=== PATIENT | male | born 1990 | race Caucasian/White ===

== ENCOUNTER 2021-10-14 14:13 | Inpatient (IN) | payer MEDICAID, SELFPAY ==
[2021-10-14] VITALS (28 sets, daily range): BP systolic 95–141; BP diastolic 58–109; PULSE 74–109; RESP 14–27; TEMP 36.9; O2SAT 90–99; BMI 34.0
--- NOTE | 2021-10-14 14:32 | ED_ITS ---
Documented by User: JOS French 10/15/21 07:59 HPI - Altered Mental Status General: Chief Complaint: Psychiatric Symptoms Stated Complaint: ams Time Seen by Provider: 10/14/21 14:16 Source: patient and police Mode of arrival: ambulatory (police custody) Limitations: altered mental status History of Present Illness: Patient is a 31-year-old male who presents to ED today in police custody (along with an affidavit) for mental health evaluation for altered mental status. According to police patient was found digging underneath a car for rocks and reportedly thought he was on a river [place]. 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 He states he took a direct train route from [facility] where he lives to here for work and has been staying at a motel. Police verifies that none of this is accurate. Patient can tell me his name and date of but cannot tell me any further orientation questions. When going over patient's medical history he tells me that he has a surgical history in which they removed his heart and now he functions without one. History is limited on patient as speech seems illogical and disorganized. court collections officer states patient does have a history of methamphetamine abuse. MD complaint: altered mental status Review of Systems General: Reports: ROS unobtainable due to mental status (able to answer questions but I question the accuracy based on psychosis) Physical Exam Const: COMMON NORMALS: alert GENERAL APPEARANCE: cooperative and disheveled NUTRITIONAL APPEARANCE: overweight ORIENTATION/CONSCIOUSNESS: Yes awake and Yes oriented to person OTHER: appears much older than stated age; wearing jeans and a sweater and is covered in dirt HENMT: COMMON NORMALS: normocephalic and atraumatic HEAD & SCALP: normocephalic and atraumatic Eye: GENERAL EYE: appearance normal, both eyes and all related structures Resp: COMMON NORMALS: normal respiratory effort and clear to auscultation bilaterally AUSCULTATION: clear to auscultation bilaterally Cardio: COMMON NORMALS: regular rhythm RATE: tachycardic RHYTHM: regular rhythm Extremity: COMMON NORMALS: normal to inspection GENERAL: Yes normal exam except as noted Neuro: OMNE COMA SCALE: document GCS findings Mone coma scale eye opening: Spontaneous Mone coma scale verbal response: Orientated Mone coma scale motor response: Obey commands [place] coma scale total score: 15 COMMON NORMALS: moves all extremities, no focal motor deficits, no sensory deficits noted and gait normal SENSORIUM/ORIENTATION: Yes alert and Yes oriented to person Psych: COMMON NORMALS: cooperative, speech normal, activity/motor behavior normal, denies hallucinations, denies homicidal ideation and denies suicidal ideation APPEARANCE: Yes disheveled SPEECH: Yes normal speech MOOD & AFFECT: Yes euthymic mood THOUGHT PROCESS: incoherent, disorganized and Illogical thought process present THOUGHT CONTENT: Yes Normal thought content present MEMORY/COGNITION: Yes memory grossly impaired INSIGHT: Limited insight present (Psych) JUDGEMENT: Limited judgement present (Psych) Course Consultations: Consultation #1: Dr. Valentine-accepts medical admit Consultation #2: Dr. Calderon-will consult on patient while in hospital Vital Signs: Vital signs: Vital Signs Temperature 98.4 F 10/14/21 19:45 Pulse Rate 81 10/15/21 06:00 Respiratory Rate 20 H 10/15/21 05:15 Blood Pressure 120/62 10/15/21 05:15 Pulse Oximetry 96 10/15/21 05:15 MDM - Altered Mental Status Medical Decision Making Patient will be admitted medically secondary to rhabdomyolysis and acute kidney injury. Patient has a methamphetamine induced psychosis. He is on a 96-hour hold. I have spoken to psychiatry and they will consult on patient while he is in the hospital. Dr. Davenport also saw/evaluated patient and agrees with current plan. Patient seen and examined reviewed note. Chart reviewed and patient discussed with midlevel. Agree with assessment and plan. Orders written for admission to ICU under 96-hour hold for medical management and psychiatry consult. Lab Data : 10/15/21 04:46 10/15/21 04:46 Radiology Impressions Chest X-Ray 10/14/21 14:33 IMPRESSION: No acute chest abnormality. Head CT 10/14/21 14:33 IMPRESSION: Negative head CT. Laboratory Results WBC 15.9 10^3/uL (4.0-10.0) H 10/14/21 14:57 RBC 5.03 10^6/uL (4.1-5.3) 10/14/21 14:57 Hgb 14.1 g/dL (11.7-16.6) 10/14/21 14:57 Hct 41.2 % (42.0-52.0) L 10/14/21 14:57 MCV 81.9 fl (80-94) 10/14/21 14:57 MCH 28.0 pg (28.0-34.0) 10/14/21 14:57 MCHC 34.2 g/dL (30.0-36.0) 10/14/21 14:57 RDW 13.6 % (12.1-15.1) 10/14/21 14:57 Plt Count 255 10^3/cmm (130-400) 10/14/21 14:57 MPV 10.7 fL (7.4-10.4) H 10/14/21 14:57 Neut % (Auto) 85.8 % 10/14/21 14:57 Lymph % (Auto) 7.2 % 10/14/21 14:57 Orange % (Auto) 6.2 % 10/14/21 14:57 Eos % (Auto) 0.0 % 10/14/21 14:57 Baso % (Auto) 0.4 % 10/14/21 14:57 Neut # (Auto) 13.60 10^3/uL (1.8-7.7) H 10/14/21 14:57 Lymph # (Auto) 1.2 10^3/uL (0.8-4.8) 10/14/21 14:57 Orange # (Auto) 1.0 10^3/uL (0.2-0.9) H 10/14/21 14:57 Eos # (Auto) 0.0 10^3/uL (0.0-0.8) 10/14/21 14:57 Baso # (Auto) 0.1 10^3/uL (0.0-0.1) 10/14/21 14:57 Nucleated RBC % (auto) 0 % 10/14/21 14:57 Nucleated RBCs # 0.0 /100WBC 10/14/21 14:57 Sodium 139 mmol/L (136-145) 10/14/21 14:57 Potassium 3.5 mmol/L (3.5-5.1) 10/14/21 14:57 Chloride 96 mmol/L (98-107) L 10/14/21 14:57 Carbon Dioxide 16 mmol/L (22-29) L 10/14/21 14:57 Anion Gap 30.5 (5-19) H 10/14/21 14:57 BUN 36 mg/dL (6-20) H 10/14/21 14:57 Creatinine 2.5 mg/dL (0.7-1.2) H 10/14/21 14:57 GFR Calculation 30.3 mL/min (90-130) L 10/14/21 14:57 Glucose 82 mg/dL (65-115) 10/14/21 14:57 Calculated Osmolality 295 mOsm/kg (285-295) 10/14/21 14:57 Uric Acid 13.4 mg/dL (3.4-7.0) H 10/14/21 14:57 Calcium 9.4 mg/dL (8.5-10.5) 10/14/21 14:57 Total Bilirubin 2.6 mg/dL (0.15-1.2) H 10/14/21 14:57 AST 128 U/L (0-40) H 10/14/21 14:57 ALT 75 U/L (0-41) H 10/14/21 14:57 Alkaline Phosphatase 134 IU/L (40-130) H 10/14/21 14:57 Creatine Kinase 5191 U/L (39-308) H* 10/14/21 14:57 CK-MB (CK-2) 34.6 ng/mL (0-10.4) H 10/14/21 14:57 CK-MB (CK-2) Rel Index 0.6 % (0.0-5.3) 10/14/21 14:57 Total Protein 8.3 g/dL (6.6-8.7) 10/14/21 14:57 Albumin 4.9 g/dL (3.5-5.2) 10/14/21 14:57 Globulin 3.4 g/dL (1.3-4.6) 10/14/21 14:57 Salicylates < 0.3 mg/dL (3-10) L 10/14/21 14:57 Urine Opiates Screen Negative ng/mL (Negative) 10/14/21 15:10 Acetaminophen < 5.0 ug/mL (10-30) L 10/14/21 14:57 Ur Barbiturates Screen Negative ng/mL (Negative) 10/14/21 15:10 Ur Phencyclidine Scrn Negative ng/mL (Negative) 10/14/21 15:10 Ur Amphetamines Screen Positive ng/mL (Negative) H 10/14/21 15:10 U Benzodiazepines Scrn Negative ng/mL (Negative) 10/14/21 15:10 Urine Cocaine Screen Negative ng/mL (Negative) 10/14/21 15:10 U Marijuana (THC) Screen Negative ng/mL (Negative) 10/14/21 15:10 Ethyl Alcohol < 10 mg/dL (0-10) 10/14/21 14:57 Discharge Plan Discharge Patient Disposition: Admitted As Inpatient Admit Provider: Dennys Green Clinical Impression: Acute psychosis, Rhabdomyolysis, Acute kidney injury, Methamphetamine abuse Condition: Stable Coding Level of Care Code ED Computing Tutor for Chg Fwd Exam Comprehensive Documented by User: Karan Davenport DO 10/14/21 17:12 HPI - Altered Mental Status General: Chief Complaint: Psychiatric Symptoms Stated Complaint: ams Time Seen by Provider: 10/14/21 14:16 Physical Exam Neuro: MONE COMA SCALE: document GCS findings Mone coma scale total score: 15 Course Vital Signs: Vital signs: Vital Signs Temperature 98.4 F 10/14/21 19:45 Pulse Rate 81 10/15/21 06:00 Respiratory Rate 20 H 10/15/21 05:15 Blood Pressure 120/62 10/15/21 05:15 Pulse Oximetry 96 10/15/21 05:15 MDM - Altered Mental Status Medical Decision Making Patient will be admitted medically secondary to rhabdomyolysis and acute kidney injury. Patient has a methamphetamine induced psychosis. He is on a 96-hour hold. I have psychiatry paged so they can consult on patient while he is in the hospital. Dr. Davenport also saw/evaluated patient and agrees with current plan. Patient seen and examined reviewed note. Chart reviewed and patient discussed with midlevel. Agree with assessment and plan. Orders written for admission to ICU under 96-hour hold for medical management and psychiatry consult. Medical Records I reviewed the patient's medical records. Lab Data I reviewed the patient's lab results. : 10/15/21 04:46 10/15/21 04:46 Radiology Impressions Chest X-Ray 10/14/21 14:33 IMPRESSION: No acute chest abnormality. Head CT 10/14/21 14:33 IMPRESSION: Negative head CT. Laboratory Results WBC 15.9 10^3/uL (4.0-10.0) H 10/14/21 14:57 RBC 5.03 10^6/uL (4.1-5.3) 10/14/21 14:57 Hgb 14.1 g/dL (11.7-16.6) 10/14/21 14:57 Hct 41.2 % (42.0-52.0) L 10/14/21 14:57 MCV 81.9 fl (80-94) 10/14/21 14:57 MCH 28.0 pg (28.0-34.0) 10/14/21 14:57 MCHC 34.2 g/dL (30.0-36.0) 10/14/21 14:57 RDW 13.6 % (12.1-15.1) 10/14/21 14:57 Plt Count 255 10^3/cmm (130-400) 10/14/21 14:57 MPV 10.7 fL (7.4-10.4) H 10/14/21 14:57 Neut % (Auto) 85.8 % 10/14/21 14:57 Lymph % (Auto) 7.2 % 10/14/21 14:57 Orange % (Auto) 6.2 % 10/14/21 14:57 Eos % (Auto) 0.0 % 10/14/21 14:57 Baso % (Auto) 0.4 % 10/14/21 14:57 Neut # (Auto) 13.60 10^3/uL (1.8-7.7) H 10/14/21 14:57 Lymph # (Auto) 1.2 10^3/uL (0.8-4.8) 10/14/21 14:57 Orange # (Auto) 1.0 10^3/uL (0.2-0.9) H 10/14/21 14:57 Eos # (Auto) 0.0 10^3/uL (0.0-0.8) 10/14/21 14:57 Baso # (Auto) 0.1 10^3/uL (0.0-0.1) 10/14/21 14:57 Nucleated RBC % (auto) 0 % 10/14/21 14:57 Nucleated RBCs # 0.0 /100WBC 10/14/21 14:57 Sodium 139 mmol/L (136-145) 10/14/21 14:57 Potassium 3.5 mmol/L (3.5-5.1) 10/14/21 14:57 Chloride 96 mmol/L (98-107) L 10/14/21 14:57 Carbon Dioxide 16 mmol/L (22-29) L 10/14/21 14:57 Anion Gap 30.5 (5-19) H 10/14/21 14:57 BUN 36 mg/dL (6-20) H 10/14/21 14:57 Creatinine 2.5 mg/dL (0.7-1.2) H 10/14/21 14:57 GFR Calculation 30.3 mL/min (90-130) L 10/14/21 14:57 Glucose 82 mg/dL (65-115) 10/14/21 14:57 Calculated Osmolality 295 mOsm/kg (285-295) 10/14/21 14:57 Uric Acid 13.4 mg/dL (3.4-7.0) H 10/14/21 14:57 Calcium 9.4 mg/dL (8.5-10.5) 10/14/21 14:57 Total Bilirubin 2.6 mg/dL (0.15-1.2) H 10/14/21 14:57 AST 128 U/L (0-40) H 10/14/21 14:57 ALT 75 U/L (0-41) H 10/14/21 14:57 Alkaline Phosphatase 134 IU/L (40-130) H 10/14/21 14:57 Creatine Kinase 5191 U/L (39-308) H* 10/14/21 14:57 CK-MB (CK-2) 34.6 ng/mL (0-10.4) H 10/14/21 14:57 CK-MB (CK-2) Rel Index 0.6 % (0.0-5.3) 10/14/21 14:57 Total Protein 8.3 g/dL (6.6-8.7) 10/14/21 14:57 Albumin 4.9 g/dL (3.5-5.2) 10/14/21 14:57 Globulin 3.4 g/dL (1.3-4.6) 10/14/21 14:57 Salicylates < 0.3 mg/dL (3-10) L 10/14/21 14:57 Urine Opiates Screen Negative ng/mL (Negative) 10/14/21 15:10 Acetaminophen < 5.0 ug/mL (10-30) L 10/14/21 14:57 Ur Barbiturates Screen Negative ng/mL (Negative) 10/14/21 15:10 Ur Phencyclidine Scrn Negative ng/mL (Negative) 10/14/21 15:10 Ur Amphetamines Screen Positive ng/mL (Negative) H 10/14/21 15:10 U Benzodiazepines Scrn Negative ng/mL (Negative) 10/14/21 15:10 Urine Cocaine Screen Negative ng/mL (Negative) 10/14/21 15:10 U Marijuana (THC) Screen Negative ng/mL (Negative) 10/14/21 15:10 Ethyl Alcohol < 10 mg/dL (0-10) 10/14/21 14:57 Discharge Plan Discharge Patient Disposition: Admitted As Inpatient Admit Provider: Dennys Green Clinical Impression: Acute psychosis, Rhabdomyolysis, Acute kidney injury, Methamphetamine abuse Condition: Stable Coding Level of Care Code ED Computing Tutor for Carola Fwd Exam Comprehensive
--- NOTE | 2021-10-14 14:33 | XR_ITS ---
WS: [id number] XR chest 1V portable [id number] REASON FOR EXAM: AMS FINDINGS: The heart and mediastinum are within normal limits. Calcified granulomatous disease in both hemithoraces. No acute pulmonary parenchymal or pleural abnormality. Bony thorax is intact without significant focal abnormality. XR/XR chest 1V portable [id number] IMPRESSION: No acute chest abnormality.
--- NOTE | 2021-10-14 14:33 | CT_ITS ---
WS: [id number] CT HEAD NONCONTRAST HISTORY: AMS TECHNIQUE: Contiguous axial imaging performed through the brain in 2.5 mm imaging. Bone and soft tiss ue windows. Sagittal and coronal reformats reviewed. All CT scans at [facility] use at least one of these dose optimization techniques: automated exposure control; mA and/or kV adjustment per pa tient size (includes targeted exams where dose is matched to clinical indication); or iterative recon struction. DLP: 926.8 mGy.cm COMPARISON: None available. No acute intracranial hemorrhage, midline shift or mass effect. No atrophy or prior infarcts or herniation. Ventricles: Normal size with no hydrocephalus. Paranasal sinuses: As visualized are clear. Mastoid air cells: Well pneumatized. Calvarium and scalp: Skull is intact with no soft tissue edema or swelling. CT/CT head wo con* [id number] IMPRESSION: Negative head CT.
[2021-10-14 15:05] LABS: Basophils # 0.1 10^3/uL (0.0-0.1); Basophils % 0.4 %; Hematocrit 41.2 % (42.0-52.0); Hemoglobin 14.1 g/dL (11.7-16.6); Lymphocytes # 1.2 10^3/uL (0.8-4.8); Lymphocytes % 7.2 %; Mean Corpuscular HGB Conc 34.2 g/dL (30.0-36.0); Mean Corpuscular Volume 81.9 fl (80-94); Mean Platelet Volume 10.7 fL (7.4-10.4); Monocytes % 6.2 %; Neutrophils % 85.8 %; Nucleated Red Blood Cells % 0 %; Platelet Count 255 10^3/cmm (130-400); Red Blood Count 5.03 10^6/uL (4.1-5.3); Red Cell Distribution Width 13.6 % (12.1-15.1); White Blood Count 15.9 10^3/uL (4.0-10.0)
[2021-10-14 15:25] LABS: Alanine Aminotransferase 75 U/L (0-41); Albumin Level 4.9 g/dL (3.5-5.2); Alkaline Phosphatase 134 IU/L (40-130); Anion Gap 30.5 (5-19); Aspartate Amino Transferase 128 U/L (0-40); Blood Urea Nitrogen 36 mg/dL (6-20); Calcium 9.4 mg/dL (8.5-10.5); Carbon Dioxide 16 mmol/L (22-29); Chloride 96 mmol/L (98-107); Globulin 3.4 g/dL (1.3-4.6); Glomerular Filtration Rate 30.3 mL/min (90-130); Glucose 82 mg/dL (65-115); Osmolality Calculated 295 mOsm/kg (285-295); Potassium 3.5 mmol/L (3.5-5.1); Sodium 139 mmol/L (136-145); Total Bilirubin 2.6 mg/dL (0.15-1.2); Total Protein 8.3 g/dL (6.6-8.7)
[2021-10-14 15:28] LABS: Amphetamines Screen Urine Positive (Negative); Barbiturates Screen Urine Negative (Negative); Benzodiazepines Screen Urine Negative (Negative); Cocaine Screen Urine Negative (Negative); Opiate Screen Urine Negative (Negative); PCP Screen Urine Negative (Negative); THC Screen Urine Negative (Negative)
[2021-10-14 15:30] LABS: Acetaminophen < 5.0 ug/mL (10-30); Alcohol Level < 10 mg/dL (0-10); Salicylate < 0.3 mg/dL (3-10)
[2021-10-14 15:42] LABS: Creatine Phosphokinase 5191 U/L (39-308)
[2021-10-14 15:56] LABS: CKMB 34.6 ng/mL (0-10.4)
[2021-10-14] MEDS: sodium chloride 0.9% 1,000 ML 999 ML IV ×4 (16:04→22:21)
[2021-10-14 16:06] LABS: CKMB Relative Index 0.6 % (0.0-5.3)
--- NOTE | 2021-10-14 18:08 | PM.HP ---
Providers/Chief Complaint Chief Complaint: ams History of Present Illness Stevan Patel is a 31 year old male who was brought in by the engineering test mechanic for mental health checkup. As per the ER staff this patient was found on a boat acting bizarre and psychotic, he was endorsing setting someone up on fire however was not able to give any details that is why he was put on 96-hour hold, when I interviewed him patient was experiencing flight of ideas, he was delusional and psychotic, restless however verbally redirectable. He was afebrile, CBC BMP consistent with dehydration, rhabdomyolysis, hemodynamically stable. He did receive aggressive fluid resuscitation in the ER, he will be admitted to ICU for management of psychosis, rhabdomyolysis. Dressing positive for methamphetamine. Patient told ER staff that he traveled towards [place] in a train which is underground. Review of Systems General: Reports: ROS unobtainable due to mental status (Psychosis, delusional) Medications/Allergies Home Medications Medication Instructions Recorded Confirmed Last Taken Type ibuprofen 200 mg tablet (Advil) 200 mg PO Q6H PRN 10/14/21 10/14/21 10/13/21 History Allergies Allergy/AdvReac Type Severity Reaction Status Date / Time No Known Allergies Allergy Unverified 10/14/21 15:58 PFSH Acute PFSH: Medical History (Updated 10/15/21 @ 11:44 by Mei Valentine MD) No pertinent past medical history Surgical History (Updated 10/15/21 @ 11:44 by Mei Valentine MD) No pertinent past surgical history Family History (Updated 10/15/21 @ 11:44 by Mei Valentine MD) Denies family history of Diabetes Social History (Updated 10/15/21 @ 11:45 by Mei Valentine MD) Smoking and tobacco status: current every day smoker Alcohol intake: unknown Substance/Drug Use: current Substance/Drug use type: Marijuana and Amphetamines Vitals/I&O/Wt Last Vital Signs Temp 98.5 F 10/14/21 14:19 Pulse 93 10/14/21 16:19 Resp 16 10/14/21 16:19 BP 95/59 10/14/21 16:19 Pulse Ox 93 10/14/21 16:19 Weight last 48 hrs Weight 120.202 kg Physical Exam Narrative: Patient is delusional, psychotic No signs of stroke Awake and alert Afebrile Signs of dehydration Nonfocal neuro exam Verbally redirectable S1, S2 Abdomen soft Appropriate grooming Data : 10/15/21 04:46 10/15/21 04:46 A&P Assessment and plan (1) Acute psychosis: Status: Acute (2) Rhabdomyolysis: Status: Acute Qualifiers: Rhabdomyolysis type: non-traumatic Qualified Code(s): M62.82 - Rhabdomyolysis (3) Acute kidney injury: Status: Acute (4) Methamphetamine abuse: Status: Acute Plan Delirium, psychosis, Substance abuse Dehydration Rhabdomyolysis Admit to ICU 96-hour hold Aggressive fluid hydration He was also given bicarb 1 amp Trend CPK Normal saline 200 mill per hour Monitor for urine output Attestations Medical Necessity Statement*: Admit to ICU anticipating more than 2 midnights Time Spent in Patient Care: 30 Coding Level of Care Code Acute Sales And Marketing Analyst for Carola Cortes Diagnoses Acute psychosis F23 Rhabdomyolysis M62.82 Rhabdomyolysis type: non-traumatic Acute kidney injury N17.9 Methamphetamine abuse F15.10
[2021-10-14 18:51] LABS: Uric Acid 13.4 mg/dL (3.4-7.0)
--- NOTE | 2021-10-14 21:24 | PC.NURSE ---
Multiple orders for fluid boluses from ED (4L in total). Physician contacted to clarify these orders, MD stated to give fluids as ordered. Will continue to monitor.
--- NOTE | 2021-10-14 21:25 | PC.NURSE ---
Patient arrived via gurney from ED with ED nurse. Upon admission assessment, this nurse noted lacerations on the left hand of the patient. These lacerations were cleaned with soap and water and left open to air. Will continue to monitor.
[2021-10-14] MEDS: sodium bicarbonate 650 mg Tablet PO (21:32)
[2021-10-14] MEDS: sodium chloride 0.9% 1,000 ML 200 ML IV (23:26)
[2021-10-15] VITALS (50 sets, daily range): BP systolic 107–145; BP diastolic 55–72; PULSE 63–94; RESP 13–30; TEMP 36.6–37.1; O2SAT 89–100
[2021-10-15] MEDS: sodium chloride 0.9% 1,000 ML 200 ML IV ×4 (04:56→20:28)
[2021-10-15 05:27] LABS: Basophils # 0.1 10^3/uL (0.0-0.1); Basophils % 0.5 %; Eosinophils # 0.1 10^3/uL (0.0-0.8); Eosinophils % 0.9 %; Hematocrit 36.3 % (42.0-52.0); Hemoglobin 11.9 g/dL (11.7-16.6); Lymphocytes % 18.7 %; Mean Corpuscular HGB Conc 32.8 g/dL (30.0-36.0); Mean Corpuscular Hemoglobin 27.4 pg (28.0-34.0); Mean Corpuscular Volume 83.6 fl (80-94); Mean Platelet Volume 10.8 fL (7.4-10.4); Monocytes # 0.9 10^3/uL (0.2-0.9); Monocytes % 8.8 %; Neutrophils # 7.48 10^3/uL (1.8-7.7); Neutrophils % 70.8 %; Nucleated Red Blood Cells % 0 %; Platelet Count 163 10^3/cmm (130-400); Red Blood Count 4.34 10^6/uL (4.1-5.3); Red Cell Distribution Width 13.8 % (12.1-15.1); White Blood Count 10.6 10^3/uL (4.0-10.0)
[2021-10-15 05:46] LABS: Alanine Aminotransferase 64 U/L (0-41); Albumin Level 3.8 g/dL (3.5-5.2); Alkaline Phosphatase 101 IU/L (40-130); Anion Gap 17.2 (5-19); Aspartate Amino Transferase 117 U/L (0-40); Blood Urea Nitrogen 22 mg/dL (6-20); Calcium 7.7 mg/dL (8.5-10.5); Carbon Dioxide 23 mmol/L (22-29); Chloride 103 mmol/L (98-107); Globulin 2.2 g/dL (1.3-4.6); Glomerular Filtration Rate 87.2 mL/min (90-130); Glucose 77 mg/dL (65-115); Magnesium 1.9 mg/dL (1.7-2.3); Osmolality Calculated 292 mOsm/kg (285-295); Phosphorus 2.2 mg/dL (2.5-4.5); Potassium 3.2 mmol/L (3.5-5.1); Sodium 140 mmol/L (136-145); Total Bilirubin 1.8 mg/dL (0.15-1.2)
[2021-10-15 06:10] LABS: Creatine Phosphokinase 5274 U/L (39-308)
--- NOTE | 2021-10-15 06:55 | PC.NURSE ---
Bedside report completed with TOMÁS Cornell.
[2021-10-15] MEDS: folic acid 1 mg Tablet PO (09:19)
[2021-10-15] MEDS: sodium bicarbonate 650 mg Tablet PO (09:19)
[2021-10-15] MEDS: thiamine 100 mg Tablet PO (09:19)
--- NOTE | 2021-10-15 09:30 | PC.CHAP ---
Pastoral Care Encounter/Spiritual Assessment Type of Contact [] Declined whipper visit [] Patient/Family/Request visit [] Outpatient visit [] Follow-up visit [] Physician referral [] Code/Alert [x] Routine visit [] Staff referral [] Actively dying [x] Patient sleeping [] Family support [] [] Out of room [] Palliative care [] [] Receiving care in room [] Pre-surgical visit [] Trauma [] Long length of stay [x] ICU visit [] Other: Relational/Emotional Strength [] Patient feels connected with others/family/visitors/staff [] Distress [] Loneliness/isolation [] Abandonment Spirituality of Patient [] Person of Cathy [] Attends Baptism of their Cathy [] Believes in Prayer [] Reads Bible or Restorationist materials [] There are Spiritual issues to be addressed Biomedical Specialist Interventions [x] Prayer [] Active listening [] Non-anxious presence [] Spiritual/emotional support [] Crisis/trauma care [] Spiritual counseling [] Bereavement support [] Provided bereavement packet [] Provided Bible/devotional materials [] Provided toy/stuffed animal, coloring book to patient or family member [] Provided Communion [] Anointing/[place] [] Salvation [x] Completed spiritual assessment [] Other: Impact on Illness or Injury [] Angry [] Fearful [] Anxious [] Often cries [] Exhaustion [] Unable to work [] Unable to attend gnosticism [] Unable to walk/stand [] Unable to read [] Unable to drive [] Unable to eat/drink [] Unable to sleep [] Unable to be with family [] Patient intubated [] Other: Summary Time spent with patient
[2021-10-15 10:31] LABS: Creatine Phosphokinase 5776 U/L (39-308)
[2021-10-15] MEDS: potassium chloride ER 20 mEq Tablet 40 MEQ PO (11:03)
[2021-10-15] MEDS: lactated ringers 1,000 ML 999 ML IV (11:04)
--- NOTE | 2021-10-15 11:55 | P.PN_ITS ---
Subjective Subjective: Psychosis, delirium improved Patient is not disoriented He is awake and alert He is able to tell me that he works for a [employer] and he gets paid $125 a day He lives with his friend He has never been , does not have any kids He is not suicidal or homicidal He was laughing when I told him about his statement that he wanted to set someone up on fire Bilirubin, creatinine improved CPK worsening Will give another bolus Also add Lasix Creatinine improved No signs of acidosis Vitals/I&O/Wt Last Vital Signs Temp 98.5 F 10/15/21 08:00 Pulse 75 10/15/21 09:00 Resp 16 10/15/21 09:30 BP 124/60 10/15/21 09:30 Pulse Ox 92 10/15/21 09:00 10/14/21 10/15/21 10/15/21 22:59 06:59 14:59 Intake Total 3725.9 / 3725.9 3440 / 7165.9 1750 / 1750 Output Total 0 / 0 1100 / 1100 550 / 550 Balance 3725.9 / 3725.9 2340 / 6065.9 1200 / 1200 Weight last 48 hrs Weight 110.45 kg Weight 105.778 kg Weight 120.202 kg Physical Exam Narrative: Awake and alert Nonfocal neuro exam Not disoriented Pleasant cooperative Looks euvolemic Abdomen is soft S1, S2 Saturating well on room air No sign of skin rash No audible stridor or wheezing Data : 10/15/21 04:46 10/15/21 04:46 A&P Assessment and plan (1) Acute psychosis: Status: Acute (2) Rhabdomyolysis: Status: Acute Qualifiers: Rhabdomyolysis type: non-traumatic Qualified Code(s): M62.82 - Rhabdomyolysis (3) Acute kidney injury: Status: Acute (4) Methamphetamine abuse: Status: Acute Plan Rhabdomyolysis: CPK worsening Another bolus given Will add Lasix later today adequate urine output Anticipating improvement with fluid hydration WAI: Improving No signs of acidosis: Discontinue bicarb Psychosis, delirium secondary to substance abuse: Improved Patient is not suicidal or homicidal Dr. Calderon to see the patient He is on regular diet now Full code DVT prophylaxis on board Patient is pleasant and cooperative Trend CPK twice daily Attestations Medical Necessity Statement*: Continue medical management Time Spent in Patient Care: 30 Coding Level of Care Code Acute Medical Resident for Chg Fwd Diagnoses Acute psychosis F23 Rhabdomyolysis M62.82 Rhabdomyolysis type: non-traumatic Acute kidney injury N17.9 Methamphetamine abuse F15.10
--- NOTE | 2021-10-15 13:39 | P.NPUHP_ITS ---
Providers/Chief Complaint Admitting Physician: Dennys Green MD Chief Complaint: ams HPI NPU History of Present Illness Stevan Patel is a 31 year old male who presented to the emergency department with the following report: Chief Complaint: Psychiatric Symptoms Stated Complaint: ams Time Seen by Provider: 10/14/21 14:16 Source: patient and police Mode of arrival: ambulatory (police custody) Limitations: altered mental status History of Present Illness: Patient is a 31-year-old male who presents to ED today in police custody (along with an affidavit) for mental health evaluation for altered mental status. According to police patient was found digging underneath a car for rocks and reportedly thought he was on a river boat. 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 He states he took a direct train route from [facility] where he lives to here for work and has been staying at a motel. Police verifies that none of this is accurate. Patient can tell me his name and date of but cannot tell me any further orientation questions. When going over patient's medical history he tells me that he has a surgical history in which they removed his heart and now he functions without one. History is limited on patient as speech seems illogical and disorganized. 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 MD complaint: altered mental status. He was admitted to the ICU for definitive treatment for his presentation and likely rhabdomyolysis. A psychiatric consult was requested for definitive evaluation of his psychiatric presentation. He presented as a limited historian basically saying that he did not know or did not remember for much of the session. He initially said that he had never been hospitalized psychiatrically however records identify otherwise and identified that his previous psychiatric hospitalization with a very similar situation in 2018. He was very vague and was not even definitive about his drug use. Eventually acknowledging the likelihood of his use being the foundational reason for his presentation. He denied outpatient services. He reports that he chews daily and smokes a limited amount as well. He denied alcohol as well as any illicit drugs. He denied any treatment via rehab or other drug and alcohol treatment or any legal consequence s from his use. He did answer historical questions however his affect in the process of questions raised certain concerns about the accuracy of his reports. At this point he did not express any interest in ongoing treatment. Psychiatric history: As above. Substance abuse history: As above. Family history: Patient denies mental health or addiction issues on either side of the family and denies suicide attempts or completions in the family. Developmental history: He did report being premature. Ultimately well-documented development milestones on time. He reports that he did have speech therapy but denied emotional support learning support or special education classes. Psychosocial history: Reports his parents were together when he was born and denied having significant siblings. He reports his childhood was okay and denied emotional, physical or sexual abuse. He denied any other significant traumas in his life. He reports he graduated from high school but denied any other training. He endorsed being heterosexual and wants relationship with 5 years. Never , has never had children, he has never been in the , and endorses being [employer]. He reports his longest employment was 11 years. He reports he currently lives in a house. Legal history: He reports that he has been in detention a couple of times long x1 month. Medical history: Please see primary team note for any additional details but he denies any problems other than the current challenges. Meds NPU Home Medications Medication Instructions Recorded Confirmed Last Taken Type ibuprofen 200 mg tablet (Advil) 200 mg PO Q6H PRN 10/14/21 10/14/21 10/13/21 History Allergies Allergy/AdvReac Type Severity Reaction Status Date / Time No Known Allergies Allergy Unverified 10/14/21 15:58 PFSH NPU PFSH: Medical History (Updated 10/15/21 @ 11:44 by Mei Valentine MD) No pertinent past medical history Surgical History (Updated 10/15/21 @ 11:44 by Mei Valentine MD) No pertinent past surgical history Family History (Updated 10/15/21 @ 11:44 by Mei Valentine MD) Denies family history of Diabetes Social History (Updated 10/15/21 @ 11:45 by Mei Valentine MD) Smoking and tobacco status: current every day smoker Alcohol intake: unknown Substance/Drug Use: current Substance/Drug use type: Marijuana and Amphetamines Mental Status Exam MSE Comments: This is an obese white male in a hospital gown with limited grooming or eye contact. No abnormal movements except for psychomotor retardation. Somewhat cooperative with exam in mild distress. Speech was limited and normal rate and volume. Mood described as good affect confused. Thought process mostly organized with some moments of disorganization. Thought content: Patient denied suicidal or homicidal ideation, there are no delusions reported or noted, denied any auditory visual hallucinations. Attention and concentration were impaired and memory was unreliable but is unclear whether that was intentional or consequential. He was alert and oriented to person and place. Insight was limited, judgment impaired and impulse control impaired. Vitals/I&O/Wt Last Vital Signs Temp 98.5 F 10/15/21 08:00 Pulse 92 10/15/21 12:30 Resp 25 H 10/15/21 12:30 BP 135/71 10/15/21 12:30 Pulse Ox 93 10/15/21 12:30 10/14/21 10/15/21 10/15/21 22:59 06:59 14:59 Intake Total 3725.9 / 3725.9 3440 / 7165.9 2350 / 2350 Output Total 0 / 0 1100 / 1100 550 / 550 Balance 3725.9 / 3725.9 2340 / 6065.9 1800 / 1800 Weight last 48 hrs Weight 110.45 kg Weight 105.778 kg Weight 120.202 kg Data NPU : 10/16/21 05:09 10/16/21 05:09 A&P Assessment and plan (1) Acute psychosis: Status: Acute (2) Rhabdomyolysis: Status: Acute Qualifiers: Rhabdomyolysis type: non-traumatic Qualified Code(s): M62.82 - Rhabdomyolysis (3) Acute kidney injury: Status: Acute (4) Methamphetamine abuse: Status: Acute Plan This is a 31-year-old white male with limited treatment history but presents with his second episode of methamphetamine induced psychosis or confusion the last episode in 2018 leading to him staying in the neuropsychiatric unit who presents somewhat confused and not appearing interested in treatment. 1. Continue current medication. 2. Agree with 96-hour hold. 3. Likely transfer to the neuropsychiatric unit after being medically cleared. Attestations NPU Medical Necessity Statement*: N/A. Please see primary team note for medical necessity but likely will need a short inpatient psychiatric stay prior to discharge. Coding Level of Care Code Acute [employer] Repairer for [employer] Diagnoses Acute psychosis F23 Rhabdomyolysis M62.82 Rhabdomyolysis type: non-traumatic Acute kidney injury N17.9 Methamphetamine abuse F15.10
[2021-10-15] MEDS: FUROsemide 10 mg/mL SDV 2mL 20 MG IVP (14:42)
[2021-10-15] MEDS: enoxaparin 30 mg/0.3 mL Syringe SUBCUT (14:42)
[2021-10-15] MEDS: ibuprofen 800 mg tablet PO (15:14)
--- NOTE | 2021-10-15 19:35 | PC.NURSE ---
Bedside report completed with TOMÁS Guillermo. Pt completely alert and oriented He has been pleasant and cooperative. He received a fluid bolus in addition to IV fluids and Lasix today. Sinus rhythm noted throughout shift. He has been up to bathroom. He does limp some, he stated he has tendonitis is both of his feet. We have used Ice packs to held with the pain and a one time order of ibuprofen. He stated they were feeling better. That has been his only complaint throughout this shift. His CK is still elevated. Dr Calderon did come by and examine pt this afternoon.
[2021-10-15 20:22] LABS: Creatine Phosphokinase 3366 U/L (39-308)
[2021-10-15 21:45] LABS: Hepatitis A Antibody IgM Non-Reactive (Nonreactive); Hepatitis B Core AB, Total Non-Reactive (Nonreactive); Hepatitis B Surface AB 42.1 (11.5-1000); Hepatitis B Surface Antigen Non-Reactive (Nonreactive); Hepatitis C Virus Antibody Non-Reactive (Nonreactive)
[2021-10-16] VITALS (13 sets, daily range): BP systolic 107–130; BP diastolic 56–78; PULSE 56–79; RESP 13–19; TEMP 36.7–37.3; O2SAT 92–98
[2021-10-16] MEDS: sodium chloride 0.9% 1,000 ML 200 ML IV ×2 (01:07→06:07)
[2021-10-16 05:25] LABS: Basophils % 0.6 %; Eosinophils # 0.2 10^3/uL (0.0-0.8); Eosinophils % 3.5 %; Hematocrit 33.7 % (42.0-52.0); Hemoglobin 11.5 g/dL (11.7-16.6); Lymphocytes # 1.5 10^3/uL (0.8-4.8); Lymphocytes % 23.1 %; Mean Corpuscular HGB Conc 34.1 g/dL (30.0-36.0); Mean Corpuscular Hemoglobin 28.1 pg (28.0-34.0); Mean Corpuscular Volume 82.4 fl (80-94); Mean Platelet Volume 10.7 fL (7.4-10.4); Monocytes # 0.6 10^3/uL (0.2-0.9); Monocytes % 9.4 %; Neutrophils % 63.1 %; Nucleated Red Blood Cells % 0 %; Platelet Count 147 10^3/cmm (130-400); Red Blood Count 4.09 10^6/uL (4.1-5.3); Red Cell Distribution Width 13.4 % (12.1-15.1); White Blood Count 6.5 10^3/uL (4.0-10.0)
[2021-10-16 05:52] LABS: Alanine Aminotransferase 69 U/L (0-41); Alkaline Phosphatase 86 IU/L (40-130); Anion Gap 10.5 (5-19); Aspartate Amino Transferase 76 U/L (0-40); Blood Urea Nitrogen 9 mg/dL (6-20); Calcium 7.9 mg/dL (8.5-10.5); Carbon Dioxide 27 mmol/L (22-29); Chloride 109 mmol/L (98-107); Globulin 2.5 g/dL (1.3-4.6); Glomerular Filtration Rate 131.5 mL/min (90-130); Glucose 103 mg/dL (65-115); Osmolality Calculated 295 mOsm/kg (285-295); Potassium 3.5 mmol/L (3.5-5.1); Sodium 143 mmol/L (136-145); Total Bilirubin 0.5 mg/dL (0.15-1.2); Total Protein 5.5 g/dL (6.6-8.7)
[2021-10-16 05:55] LABS: Creatine Phosphokinase 1620 U/L (39-308)
[2021-10-16] MEDS: thiamine 100 mg Tablet PO (07:55)
[2021-10-16] MEDS: folic acid 1 mg Tablet PO (07:55)
--- NOTE | 2021-10-16 09:17 | XR_ITS ---
WS: [id number] XR knee LT 1-2V 91986 REASON FOR EXAM: swelling FINDINGS: No fracture or focal bone lesion. The joint spaces are intact and well preserved. Large suprapatellar knee joint effusion. XR/XR knee LT 1-2V 68443 IMPRESSION: Large knee joint effusion without other abnormality.
--- NOTE | 2021-10-16 09:17 | PM.MISC ---
Miscellaneous Note Note: CPK improved significantly No electrolyte imbalance Patient is not suicidal or homicidal We will go to neuropsych today Complaining of left knee pain I do not see any signs of septic joint Swelling on right medial side No limited range of motion No active signs of cellulitis Patient is awake and alert Nonfocal neuro exam Cooperative and pleasant No psychosis or delusional episodes today Blood pressure is stable Abdomen soft Assessment and plan We will give him ketorolac and x-ray his left knee I do not see any signs of infection or septic joint He can benefit from ibuprofen as needed basis 600 mg 3 times daily as needed We can discontinue fluids today, patient encouraged to increase p.o. intake CPK can be trended for 2 more days Transfer to neuropsych Dr. Calderon has been notified
[2021-10-16 09:45] LABS: Creatine Phosphokinase 1553 U/L (39-308)
[2021-10-16] MEDS: ketorolac 30 mg/mL INJ 15 MG IVP (10:10)
--- NOTE | 2021-10-16 10:32 | PC.NURSE ---
Report called to Stefania in NPU. Patient transferred out of ICU via wheelchair with security escorts. Belongings sent with security. Left IV removed. Patient tolerated well. Lead wires and telemetry patches removed. Patient out of ICU at 10:28.
--- NOTE | 2021-10-16 10:36 | PC.NURSE ---
Belongings set with security upon transfer to NPU.
--- NOTE | 2021-10-16 11:00 | PC.NURSE ---
PIV removed, Pt report given by ICU supervisor finishing room and transported to NPU.
--- NOTE | 2021-10-16 12:09 | PC.ADMIT ---
[address] Admission Note: The patient,Stevan Patel,31 y/o, was given written information regarding hospital policies, unit procedures and contact persons. Patient's smoking status: current every day smoker. Vital Signs - 8 hr 10/16/21 05:00 10/16/21 06:00 10/16/21 07:00 Temperature Pulse Rate 59 L 63 66 Respiratory Rate 14 16 17 Blood Pressure 123/78 107/57 108/56 Pulse Oximetry 96 95 96 10/16/21 08:00 10/16/21 09:00 10/16/21 10:57 Temperature 98.3 F Pulse Rate 72 79 76 Respiratory Rate 17 19 H 16 Blood Pressure 124/74 122/63 122/64 Pulse Oximetry 97 96 98 ADMITTED FROM ICU AT 1040 AM VIA WC. PT STATES HE IS HERE DUE TO NEEDING CHECKED OUT BECAUSE I WAS NOT ACTING RIGHT. PT WAS IN ICU DUE TO RHABDOMYOYLSIS OF LEFT LEG. PT WALKS WITH A LIMP WHEN AMBULATING. ORDER FOR PT WAS OBTAINED TO EVALUATE FOR WALKER. PT STATES HE HAS NKDA AND TAKES NO HOME MEDS. UDS POSITIVE FOR METHAMPHETAMINES. PT DOES REPORT HE HAS USED FOR THE PAST 16 YEARS ON AND OFF BUT FELL OFF THE [place] 3-4 DAYS AGO. PT STATES HE HAS NO PSYCHIATRIC HISTORY OR DIAGNOSES AT THESE TIMES. PT DENIES SI/HI AND AVH AT THIS TIME. REPORTS MILD PAIN WHEN AMBULATING. DECLINES TYLENOL AT THIS TIME. ORIENTATED TO UNIT. LLUNCH TRAY GIVEN TO PT CONSUMED 100%. ALL QUESTIONS ANSWERED AND SUPPORT VOICED.
[2021-10-16] MEDS: nicotine 2 mg Gum BUCCAL ×4 (13:18→23:15)
--- NOTE | 2021-10-16 18:17 | P.NPUPN_ITS ---
Subjective NPU Subjective: Patient presents today reporting that he is doing better. He fully downplay the significance of his hospitalization secondary to methamphetamine. He downplayed his clear history of similar problems and the need for any ongoing treatment. He endorsed to focus to move on and get this behind him. We discussed him being on a 96-hour hold and also evaluating for safety for discharge. Mental Status Exam MSE Comments: This is an obese white male in a hospital gown with limited grooming or eye contact.? No abnormal movements except for psychomotor retardation.? Somewhat cooperative with exam in mild distress.? Speech was limited and normal rate and volume.? Mood described as good, affect less confused.? Thought process mostly organized with less moments of disorganization.? Thought content: Patient denied suicidal or homicidal ideation, there are no delusions reported or noted, denied any auditory visual hallucinations.? Attention and concentration were impaired and memory was unreliable but is unclear whether that was intentional or consequential.? He was alert and oriented to person and place.? Insight was limited, judgment impaired and impulse control impaired. Vitals/I&O/Wt Last Vital Signs Temp 99 F 10/16/21 20:52 Pulse 74 10/16/21 20:52 Resp 18 10/16/21 20:52 BP 130/64 10/16/21 20:52 Pulse Ox 95 10/16/21 20:52 10/16/21 14:59 Intake Total 480 / 480 Balance 480 / 480 Weight last 48 hrs Weight 112.037 kg Data NPU : 10/16/21 05:09 10/16/21 05:09 A&P Assessment and plan (1) Acute psychosis: Status: Acute (2) Rhabdomyolysis: Status: Acute Qualifiers: Rhabdomyolysis type: non-traumatic Qualified Code(s): M62.82 - Rhabdomyolysis (3) Acute kidney injury: Status: Acute (4) Methamphetamine abuse: Status: Acute Plan This is a 31-year-old white male with limited treatment history but presents with his second episode of methamphetamine induced psychosis or confusion the last episode in 2018 leading to him staying in the neuropsychiatric unit who presents somewhat confused and not appearing interested in treatment. 1. Continue current medication. 2. Continue every 15 minute checks for safety. 3. Encourage individual, group and milieu therapies. 4. Encourage sober living treatment after discharge at the highest level of care to which he is willing to commit. Involuntary Hold Information 96 Hour Hold: 96 Hour Involuntary Admission: Yes 96 Hour Hold Ending Date: 10/23/21 96 Hour Hold Ending Time: 10:40 Attestations NPU Medical Necessity Statement*: Inpatient hospitalization is medically necessary and the clinically appropriate intervention at this time. We will monitor medication to make changes as indicated. Patient will be in the hospital for over two midnights. Likely length of stay 1-3 days. Coding Level of Care Code Acute [employer] Developer for [employer]ola Cortes Diagnoses Acute psychosis F23 Rhabdomyolysis M62.82 Rhabdomyolysis type: non-traumatic Acute kidney injury N17.9 Methamphetamine abuse F15.10
[2021-10-16] MEDS: acetaminophen 325 mg Tablet 650 MG PO ×2 (18:31→23:14)
[2021-10-17 06:00] VITALS: BP 115/71; PULSE 65; RESP 20; TEMP 36.4; O2SAT 99; BMI 31.7
[2021-10-17] MEDS: thiamine 100 mg Tablet PO (08:54)
[2021-10-17] MEDS: folic acid 1 mg Tablet PO (08:54)
[2021-10-17] MEDS: nicotine 2 mg Gum BUCCAL ×3 (09:32→14:50)
[2021-10-17 09:56] LABS: Creatine Phosphokinase 520 U/L (39-308)
--- NOTE | 2021-10-17 10:36 | PC.NURSE ---
UP AMBULATING IN [facility] WITH WALKER. DENIES PAIN. DENIES SIO/HI AND AVH AT THIS TIME. LAB CALLED WITH CRITICAL CK OF 520 WHICH IS DOWN FROM 1553. VDR. TANNER NOTIFIED NO NEW ORDERS. CK CONTINUES TO TREND DOWN.
[2021-10-17 13:29] VITALS: BP 123/74; PULSE 65; RESP 16; TEMP 36.6; O2SAT 97
--- NOTE | 2021-10-17 14:47 | P.NPUDS_ITS ---
Diagnoses at Discharge Discharge Diagnosis (1) Acute psychosis: Status: Acute (2) Rhabdomyolysis: Status: Acute Qualifiers: Rhabdomyolysis type: non-traumatic Qualified Code(s): M62.82 - Rhabdomyolysis (3) Acute kidney injury: Status: Acute (4) Methamphetamine abuse: Status: Acute Reason for Visit Reason for Visit: ams Brief History: History of Present Illness Stevan Patel is a 31 year old male who presented to the emergency department with the following report: Chief Complaint: Psychiatric Symptoms Stated Complaint: ams Time Seen by Provider: 10/14/21 14:16 Source: patient and police Mode of arrival: ambulatory (police custody) Limitations: altered mental status History of Present Illness:?? Patient is a 31-year-old male who presents to ED today in police custody (along with an affidavit) for mental health evaluation for altered mental status.? According to police patient was found digging underneath a car for rocks and reportedly thought he was on a river boat.? 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 He states he took a direct train route from [facility] where he lives to here for work and has been staying at a motel. Police verifies that none of this is accurate.? Patient can tell me his name and date of but cannot tell me any further orientation questions.? When going over patient's medical history he tells me that he has a surgical history in which they removed his heart and now he functions without one. History is limited on patient as speech seems illogical and disorganized. promotion officer states patient does have a history of methamphetamine abuse. MD complaint: altered mental status. He was admitted to the ICU for definitive treatment for his presentation and likely rhabdomyolysis.? A psychiatric consult was requested for definitive evaluation of his psychiatric presentation.? He presented as a limited historian basically saying that he did not know or did not remember for much of the session.? He initially said that he had never been hospitalized psychiatrically however records identify otherwise and identified that his previous psychiatric hospitalization with a very similar situation in 2018.? He was very vague and was not even definitive about his drug use.? Eventually acknowledging the likelihood of his use being the foundational reason for his presentation.? He denied outpatient services.? He reports that he chews daily and smokes a limited amount as well.? He denied alcohol as well as any illicit drugs.? He denied any treatment via rehab or other drug and alcohol treatment or any legal consequences from his use.? He did answer historical questions however his affect in the process of questions raised certain concerns about the accuracy of his reports.? At this point he did not express any interest in ongoing treatment. Psychiatric history: As above. Substance abuse history: As above. Family history: Patient denies mental health or addiction issues on either side of the family and denies suicide attempts or completions in the family. Developmental history: He did report being premature.? Ultimately well-documented development milestones on time.? He reports that he did have speech therapy but denied emotional support learning support or special education classes. Psychosocial history: Reports his parents were together when he was born and denied having significant siblings.? He reports his childhood was okay and denied emotional, physical or sexual abuse.? He denied any other significant traumas in his life.? He reports he graduated from high school but denied any other training.? He endorsed being heterosexual and wants relationship with 5 years.? Never , has never had children, he has never been in the , and endorses being Scientologist.? 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 He reports he currently lives in a house. Legal history: He reports that he has been in prison a couple of times long x1 month. Medical history: Please see primary team note for any additional details but he denies any pr oblems other than the current challenges. Hospital Course Hospital Course He slowly acclimated to the individual, group and time he had and he continues to report that this is a every now and then situation control and that he needs no ongoing interventions. Not interested in medication. Work with the treatment team for thought basic outpatient follow-up but no significant commitment made. Ultimately he was observed to ensure safety given the 96-hour hold. He did have significant provement since his to the ICU. He was able to contract for safety of the hospital prior to discharge. During the hospitalization, patient had routine laboratory studies which were within normal limits except for few outliers. Additionally there was a general medical evaluation which was also within normal limits and revealed no new acute processes. Discharge Summary: At the time of discharge, he denied psychosis or lethality. Mood and anxiety were well managed. Patient endorsed a plan to avoid all drugs of abuse and consider the aftercare recommendations of the treatment team. Patient was evaluated and deemed to be absent credible lethality, and had achieved the maximum benefit from an inpatient hospitalization, so was discharged. Involuntary Hold Information 2 96 Hour Hold: 96 Hour Involuntary Admission: Yes 96 Hour Hold Ending Date: 10/23/21 96 Hour Hold Ending Time: 10:40 Mental Status Exam MSE Comments: This is an obese white male in a hospital gown with limited grooming or eye contact.? No abnormal movements except for psychomotor retardation.? Somewhat cooperative with exam in no acute distress.? Speech was limited and normal rate and volume.? Mood described as good, affect less confused.? Thought process mostly organized with less moments of disorganization.? Thought content: Patient denied suicidal or homicidal ideation, there are no delusions reported or noted, denied any auditory visual hallucinations.? Attention and concentration were impaired and memory was unreliable but is unclear whether that was intentional or consequential.? He was alert and oriented to person and place.? Insight was limited, judgment limited but improving and impulse control impaired. Discharge Data Studies Completed and Pending: Completed Studies During Hospitalization Category Date Time Status CT head wo con* [id number] Urgent Cat Scan 10/14/21 14:33 Completed XR chest 1V shayne ble [id number] Urgent Exams 10/14/21 14:33 Completed XR knee LT 1-2V 7 [id number] Routine Exams 10/16/21 09:17 Completed Pending at discharge Category Date Time Status CPK [Creatine Lucy sphokinase] AM LAB S Lab 10/18/21 04:00 Ordered CPK [Creatine Lucy sphokinase] AM LAB S Lab 10/19/21 04:00 Ordered Radiology Impressions Chest X-Ray 10/14/21 14:33 IMPRESSION: No acute chest abnormality. Head CT 10/14/21 14:33 IMPRESSION: Negative head CT. Knee X-Ray 10/16/21 09:17 IMPRESSION: Large knee joint effusion without other abnormality. Laboratory Results WBC 6.5 10^3/uL (4.0- 10.0) 10/16/21 05:09 RBC 4.09 10^6/uL (4.1 -5.3) L 10/16/21 05:09 Hgb 11.5 g/dL (11.7-1 6.6) L 10/16/21 05:09 Hct 33.7 % (42.0-52.0 ) L 10/16/21 05:09 MCV 82.4 fl (80-94) 10/16/21 05:09 MCH 28.1 pg (28.0-34. 0) 10/16/21 05:09 MCHC 34.1 g/dL (30.0-3 6.0) 10/16/21 05:09 RDW 13.4 % (12.1-15.1 ) 10/16/21 05:09 Plt Count 147 10^3/cmm (130 -400) 10/16/21 05:09 MPV 10.7 fL (7.4-10.4 ) H 10/16/21 05:09 Neut % (Auto) 63.1 % 10/16/21 05:09 Lymph % (Auto) 23.1 % 10/16/21 05:09 [place] % (Auto) 9.4 % 10/16/21 05:09 Eos % (Auto) 3.5 % 10/16/21 05:09 Baso % (Auto) 0.6 % 10/16/21 05:09 Neut # (Auto) 4.10 10^3/uL (1.8 -7.7) 10/16/21 05:09 Lymph # (Auto) 1.5 10^3/uL (0.8- 4.8) 10/16/21 05:09 [place] # (Auto) 0.6 10^3/uL (0.2- 0.9) 10/16/21 05:09 Eos # (Auto) 0.2 10^3/uL (0.0- 0.8) 10/16/21 05:09 Baso # (Auto) 0.0 10^3/uL (0.0- 0.1) 10/16/21 05:09 Nucleated RBC % (a uto) 0 % 10/16/21 05:09 Nucleated RBCs # 0.0 /100WBC 10/16/21 05:09 Sodium 143 mmol/L (136-1 45) 10/16/21 05:09 Potassium 3.5 mmol/L (3.5-5 .1) 10/16/21 05:09 Chloride 109 mmol/L (98-10 7) H 10/16/21 05:09 Carbon Dioxide 27 mmol/L (22-29) 10/16/21 05:09 Anion Gap 10.5 (5-19) 10/16/21 05:09 BUN 9 mg/dL (6-20) 10/16/21 05:09 Creatinine 0.7 mg/dL (0.7-1. 2) 10/16/21 05:09 GFR Calculation 131.5 mL/min (90- 130) H 10/16/21 05:09 Glucose 103 mg/dL (65-115 ) 10/16/21 05:09 Calculated Osmolal ity 295 mOsm/kg (285- 295) 10/16/21 05:09 Uric Acid 13.4 mg/dL (3.4-7 .0) H 10/14/21 14:57 Calcium 7.9 mg/dL (8.5-10 .5) L 10/16/21 05:09 Phosphorus 2.2 mg/dL (2.5-4. 5) L 10/15/21 04:46 Magnesium 1.9 mg/dL (1.7-2. 3) 10/15/21 04:46 Total Bilirubin 0.5 mg/dL (0.15-1 .2) 10/16/21 05:09 AST 76 U/L (0-40) H 10/16/21 05:09 ALT 69 U/L (0-41) H 10/16/21 05:09 Alkaline Phosphata se 86 IU/L (40-130) 10/16/21 05:09 Creatine Kinase 520 U/L (39-308) H* 10/17/21 09:24 CK-MB (CK-2) 34.6 ng/mL (0-10. 4) H 10/14/21 14:57 CK-MB (CK-2) Rel I ndex 0.6 % (0.0-5.3) 10/14/21 14:57 Total Protein 5.5 g/dL (6.6-8.7 ) L 10/16/21 05:09 Albumin 3.0 g/dL (3.5-5.2 ) L 10/16/21 05:09 Globulin 2.5 g/dL (1.3-4.6 ) 10/16/21 05:09 Salicylates < 0.3 mg/dL (3-10 ) L 10/14/21 14:57 Urine Opiates Scre en Negative ng/mL (N egative) 10/14/21 15:10 Acetaminophen < 5.0 ug/mL (10-3 0) L 10/14/21 14:57 Ur Barbiturates Sc reen Negative ng/mL (N egative) 10/14/21 15:10 Ur Phencyclidine S crn Negative ng/mL (N egative) 10/14/21 15:10 Ur Amphetamines Sc reen Positive ng/mL (N egative) H 10/14/21 15:10 U Benzodiazepines Scrn Negative ng/mL (N egative) 10/14/21 15:10 Urine Cocaine Scre en Negative ng/mL (N egative) 10/14/21 15:10 U Marijuana (THC) Screen Negative ng/mL (N egative) 10/14/21 15:10 Ethyl Alcohol < 10 mg/dL (0-10) 10/14/21 14:57 Hepatitis A IgM Ab Non-reactive (No nreactive) 10/15/21 18:35 Hep Bs Antigen Non-reactive (No nreactive) 10/15/21 18:35 Hep Bs Antibody 42.1 (11.5-1000) 10/15/21 18:35 Hep B Core Total A b Non-reactive (No nreactive) 10/15/21 18:35 Hepatitis C Antibo dy Non-reactive (No nreactive) 10/15/21 18:35 Vitals: Last Vital Signs Temp 97.8 F 10/17/21 13:29 Pulse 65 10/17/21 13:29 Resp 16 10/17/21 13:29 BP 123/74 10/17/21 13:29 Pulse Ox 97 10/17/21 13:29 Discharge Plan Discharge Patient Disposition: Home Condition: Stable Prescriptions: New Vitamin B-1 (mononitrate) 100 mg Tablet 100 mg PO DAILY 30 Days Qty: 30 1RF Continued Advil 200 mg Tablet 200 mg PO Q6H PRN (Reason: Pain) 0RF Discharge Orders: Discharge Order (Routine); Ordered 10/17/21 Ordered By: Jeff Calderon Referrals: NA [Other] (Wednesday, Wednesday, Wednesday 6:30pm-Open discussion/Participation Wednesday 6:30pm-Open Basic Text 6:30pm-Open Beginner/Newcomer Wednesday, Saturday-Open) Discharge Diet: Regular Discharge Activity: Resume usual activity Patient Instructions: Methamphetamine Abuse, Opioid Safety Discharge Attestations NPU Time Spent in Discharge Care*: less than 30 min Specific Discharge Activities: Specific discharge activities: educating patient, discussing with gearcase assembler/social workers/dc planners, documenting/other paperwork and evaluating patient/reviewing data Coding Level of Care Code Acute Chg FW DC note Diagnoses Acute psychosis F23 Rhabdomyolysis M62.82 Rhabdomyolysis type: non-traumatic Acute kidney injury N17.9 Methamphetamine abuse F15.10
[2021-10-17] MEDS: acetaminophen 325 mg Tablet 650 MG PO (14:50)
[2021-10-17 15:35] VITALS: BP 123/74; PULSE 65; RESP 16; TEMP 36.6; O2SAT 97
== END 2021-10-17 16:30 | disposition home or self-care (01) | DRG 897 ==
LOC: ER 16:51 → ICU 10-15 06:27 → NP 10-16 10:30
PROVIDERS: Physician Assistant; Admitting Provider Family Medicine; Emergency Provider Family Medicine; Visit Provider Internal Medicine
DX: F15.159 Other stimulant abuse with stimulant-induced psychotic disorder, unspecified (principal); M62.82 Rhabdomyolysis; N17.9 Acute kidney failure, unspecified; E86.0 Dehydration; F17.200 Nicotine dependence, unspecified, uncomplicated
CPT/HCPCS: 36415; 70450; 71045; 73560; 80053; 80306; 80307; 82550; 82553; 83735; 84100; 84550; 85025; 86705; 86706; 86709; 86803; 87340; 96360; 96361; 96372; 97150; 97161; 97165; 99285; J1650; J1885; J1940; J7030

== ENCOUNTER 2022-03-27 18:01 | Emergency (ER) | payer OTHER, MEDICAID, SELFPAY ==
[2022-03-27 18:35] VITALS: BP 174/102; PULSE 150; RESP 16; TEMP 36.7; O2SAT 97; BMI 34.3
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
[2022-03-27] MEDS: HYDROcodone-acetaminophen 10-325 mg Tablet 1 TAB PO (18:48)
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
[2022-03-27 20:41] VITALS: RESP 18
[2022-03-27] MEDS: ondansetron 2 mg/ML SDV 2 mL 4 MG IVP (20:41)
[2022-03-27] MEDS: HYDROmorphone 1 mg/mL INJ 1 mL IVP ×2 (20:41→22:18)
[2022-03-27] MEDS: iohexol 350 mg/mL 500 mL Btl (per mL) IV ×2 (20:58→21:26)
[2022-03-27 21:07] LABS: Basophils # 0.1 10^3/uL (0.0-0.1); Basophils % 0.7 %; Eosinophils # 0.3 10^3/uL (0.0-0.8); Eosinophils % 2.3 %; Hematocrit 46.5 % (42.0-52.0); Hemoglobin 15.1 g/dL (11.7-16.6); Lymphocytes % 15.9 %; Mean Corpuscular HGB Conc 32.5 g/dL (30.0-36.0); Mean Corpuscular Hemoglobin 26.6 pg (28.0-34.0); Mean Corpuscular Volume 81.9 fl (80-94); Mean Platelet Volume 9.7 fL (7.4-10.4); Monocytes % 8.2 %; Neutrophils # 8.83 10^3/uL (1.8-7.7); Neutrophils % 71.4 %; Nucleated Red Blood Cells % 0 %; Platelet Count 341 10^3/cmm (130-400); Red Blood Count 5.68 10^6/uL (4.1-5.3); Red Cell Distribution Width 19.6 % (12.1-15.1); White Blood Count 12.4 10^3/uL (4.0-10.0)
[2022-03-27 21:33] LABS: Alanine Aminotransferase 62 U/L (0-41); Albumin Level 4.7 g/dL (3.5-5.2); Alkaline Phosphatase 146 U/L (40-130); Anion Gap 19.4 (5-19); Aspartate Amino Transferase 52 U/L (0-40); Blood Urea Nitrogen 22 mg/dL (6-20); Calcium 9.8 mg/dL (8.5-10.5); Carbon Dioxide 24 mmol/L (22-29); Chloride 101 mmol/L (98-107); Globulin 3.8 g/dL (1.3-4.6); Glomerular Filtration Rate 41.6 mL/min (90-130); Glucose 170 mg/dL (65-115); Osmolality Calculated 299 mOsm/kg (285-295); Potassium 3.4 mmol/L (3.5-5.1); Sodium 141 mmol/L (136-145); Total Bilirubin 0.8 mg/dL (0.15-1.2); Total Protein 8.5 g/dL (6.6-8.7)
[2022-03-27] MEDS: sodium chloride 0.9% 1,000 ML 999 ML IV (22:17)
[2022-03-27] MEDS: haloperidol inj 5 mg/mL INJ 1 mL 2 MG IVP (22:18)
[2022-03-27 22:36] VITALS: BP 141/64; PULSE 94; RESP 19; O2SAT 97
--- NOTE | 2022-03-30 10:11 | DCPLANNER ---
Addendum entered by Leila Forrest 04/07/22 12:30: Patient has a follow up appointment scheduled with ortho - patient did attend appointment. Original Note: manager civil had message to schedule a follow up appointment for patient with ortho. manager civil sent patients information to the front office staff at ortho. Patients information will be printed and reviewed. Clinic will call patient with appointment information.
== END 2022-03-27 22:41 | disposition home or self-care (01) ==
PROVIDERS: Emergency Provider Nurse Practitioner Family
DX: S82.201A Unspecified fracture of shaft of right tibia, initial encounter for closed fracture (principal); S82.831A Other fracture of upper and lower end of right fibula, initial encounter for closed fracture; V28.49XA Other motorcycle driver injured in noncollision transport accident in traffic accident, initial encounter; Y92.410 Unspecified street and highway as the place of occurrence of the external cause
CPT/HCPCS: 73590; 73700; 73701; 80053; 85025; 96361; 96374; 96375; 96376; 99285; J1170; J1630; J2405; J7030; Q9967

== ENCOUNTER 2022-04-01 09:42 | Day surgery (SDC) | payer OTHER, MEDICAID, SELFPAY ==
[2022-03-31 14:57] VITALS: BMI 34.3
[2022-04-01] VITALS (13 sets, daily range): BP systolic 122–144; BP diastolic 54–96; PULSE 63–81; RESP 16–18; TEMP 36.1–36.6; O2SAT 95–100
--- NOTE | 2022-04-01 | XR_ITS ---
WS: [id number] INTRAOPERATIVE TECHNIQUE: 3 Spot fluoroscopic images for intraoperative purposes. FLUOROSCOPY TIME: 23.0 seconds CLINICAL INFORMATION: external fixator, right leg, or pic COMPARISON: None. FINDINGS: External fixator placement RIGHT femur and tibia IMPRESSION: Images obtained for intraoperative purposes.
[2022-04-01] MEDS: sodium chloride 0.9% 1,000 ML 30 ML IV (10:32)
--- NOTE | 2022-04-01 10:57 | W.PM.OPSUD ---
Surgery/Procedure H&P Update DATE OF PROCEDURE: April 01, 2022 DATE H&P PERFORMED: 03/31/22 H&P UPDATE INFORMATION: I have reviewed H&P completed within last 30 days, I have examined patient prior to procedure and No changes to prior documentation PREOP DIAGNOSIS: Right tibial plateau fracture PLANNED PROCEDURE: Operation Date: 04/01/22 11:35 Proposed Procedures p External Fixator Lower Extremity right tibial plateu 89018/s82.141a(Right) - Solis Milton DO
[2022-04-01] MEDS: ceFAZolin 2,000 MG in sodium chloride 0.9% (plus) 50 ML 100 MG IV (11:24)
[2022-04-01] MEDS: ondansetron 2 mg/ML SDV 2 mL 4 MG IVP ×2 (12:17→12:24)
--- NOTE | 2022-04-01 12:25 | P.OP_ITS ---
Operative Report Date of procedure: April 01, 2022 Pre-op diagnosis: Preop Diagnosis Right tibial plateau fracture Post-op diagnosis: same Procedure done: 1. uniplaner ex fix spanning the knee for tibial plateau fracture Surgeon: Solis Milton Scrap Piler: Hilton Powers Scrap Piler: The bindery library technical assistant, Hilton Powers, JOSELYN was needed for his expertise with fracture care. He was important and necessary throughout the procedure to complete in a safe and timely manner. He assisted with patient positioning prepping and draping tissue retraction suctioning of the operative field protection of the critical structures and tissue closure Estimated blood loss (mL): 5 Procedure: 1. uniplaner ex fix spanning the knee for tibial plateau fracture Patient was brought to the operative suite. The right leg was prepped and draped normal sterile fashion. he was placed supine on the table to stab incision was made in the tibia 2 stab incisions were made in the femur. 2 pins were placed into the team tibia by drilling them in. And 2 pins were drilled into the femur. Clamps and rods were attached to the 2 pins in the femur and also into the tibia a toney toney clamp was used to attach the 2 rods. Traction was pulled and then everything was tightened down AP lateral fluoroscopy ensured that the fracture was adequately reduced and pins were in good position. Another toney was then placed from the near femur pin to the near tibia pin and locked into position all the clamps for really tested to make sure they are locked all the way down dressings were placed around the pin sites. And patient was transferred to the PACU in stable condition.
[2022-04-01] MEDS: HYDROmorphone 1 mg/mL INJ 1 mL 0.5 MG IVP (12:35)
[2022-04-01] MEDS: HYDROcodone-acetaminophen 5-325 mg Tablet 2 TAB PO (13:31)
--- NOTE | 2022-04-01 16:32 | ANE.PACU2 ---
Inpatient post-anesthesia follow up: Airway intact: Yes Vital signs: Temperature 97.0 F Pulse Rate 73 Respiratory Rate 18 Blood Pressure 131/78 Pulse Oximetry 97 Oxygen Delivery Me thod Nasal Cannula Oxygen Flow Rate 2 Fraction of Inspir ed Oxygen Hydration adequate: Yes Nausea and vomiting: No Pain level: 1 Mental status: Baseline
== END 2022-04-01 15:06 | disposition home or self-care (01) ==
PROVIDERS: Visit Provider Orthopaedic Surgery
PROC: (CPT 27532; principal; 2022-04-01 11:25)
DX: S82.141A Displaced bicondylar fracture of right tibia, initial encounter for closed fracture (principal); V29.99XA Rider (driver) (passenger) of other motorcycle injured in unspecified traffic accident, initial encounter; F17.210 Nicotine dependence, cigarettes, uncomplicated
CPT/HCPCS: 27532; 73560; 76000; C1713; J0690; J1100; J1170; J2250; J2405; J2704; J3010; J7030

== ENCOUNTER 2022-04-08 16:52 | Inpatient (IN) | payer OTHER, MEDICAID, SELFPAY ==
[2022-04-08] VITALS (18 sets, daily range): BP systolic 131–157; BP diastolic 73–86; PULSE 78–105; RESP 16–24; TEMP 36.6–37.3; O2SAT 91–98
[2022-04-08] MEDS: sodium chloride 0.9% 1,000 ML 30 ML IV (14:40)
--- NOTE | 2022-04-08 14:41 | P.ANESASSM_ITS ---
Pre-Anesthetic Assessment Height/Weight: Height 1.91 m Weight 124.738 kg Temp Pulse Resp BP Pulse Ox O2 Del Method 97.8 F 78 18 147/79 98 04/08/22 12:38 04/08/22 12:38 04/08/22 12:38 04/08/22 12:38 04/08/22 12:38 04/08/22 12:43 Preop Diagnosis: Right comminuted tibial plateau fracture Operation Date: 04/08/22 13:45 Proposed Procedures p ORIF Tibial Plateau right 17041/S82.201A(Right) - Solis Milton DO Familial anesthetic complications: none Was Beta Nicole taken within 24 hours: N/A Was Clonidine taken within 24 hours: N/A Last intake: Intake Last Liquid Date 04/07/22 Last Liquid Time 20:00 Last Solid Date 04/07/22 Last Solid Time 20:00 Social No alcohol and No tobacco Exam alert, oriented x 3, clear to auscultation bilaterally and regular rate & rhythm Airway Submandibular: within normal limits Cervical ROM: within normal limits Mallampati: Class II Dentition: full Chronic Renal Insufficiency Anesthetic Plan ASA status: 2 Anesthesia: General Medications/Allergies Home Medications Medication Instructions Recorded Confirmed Last Taken Type ibuprofen 200 mg tablet (Advil) 200 mg PO Q6H PRN Pain 10/14/21 04/07/22 04/07/22 History hydrocodone 5 mg-acetaminophen 325 1 - 2 tab PO Q4H PRN pain 5 days 03/31/22 04/07/22 04/08/22 Rx mg tablet #30 tabs wheelchair with elevated leg rest #1 ea 04/03/22 Unknown Rx hydrocodone 5 mg-acetaminophen 325 1 - 2 tab PO .Q4-6H PRN pain 7 04/07/22 Unknown Rx mg tablet days #40 tabs Allergies Allergy/AdvReac Type Severity Reaction Status Date / Time No Known Allergies Allergy Verified 04/07/22 12:08 [facility] Medical History No pertinent past medical history Surgical History No pertinent past surgical history Family History Denies family history of Diabetes Social History Smoking and tobacco status: current every day smoker Alcohol intake: unknown Data Anesthesia Cardiac Studies: No Data to Display
--- NOTE | 2022-04-08 14:46 | W.PM.OPSUD ---
Surgery/Procedure H&P Update DATE OF PROCEDURE: April 08, 2022 DATE H&P PERFORMED: 03/31/22 H&P UPDATE INFORMATION: I have reviewed H&P completed within last 30 days, I have examined patient prior to procedure and No changes to prior documentation PREOP DIAGNOSIS: Right comminuted tibial plateau fracture PLANNED PROCEDURE: Operation Date: 04/08/22 13:45 Proposed Procedures p ORIF Tibial Plateau right 01970/S82.201A(Right) - Solis Milton DO
[2022-04-08] MEDS: ceFAZolin 2,000 MG in sodium chloride 0.9% (plus) 50 ML 100 MG IV (15:20)
--- NOTE | 2022-04-08 17:13 | XR_ITS ---
WS: [id number] Exam: XR knee RT 1-2V [id number] Date/Time of Exam: 04/08/2022 5:13 PM Reason For Exam: OR PICS Lateral intraoperative C-arm images of the right knee demonstrate plate and screw fixation involving a fracture of the proximal left tibia. Postoperative changes in the adjacent soft tissues. Air in the joint capsule. No AP view included in the series.
[2022-04-08] MEDS: HYDROmorphone 1 mg/mL INJ 1 mL 0.5 MG IVP ×2 (18:05→18:25)
--- NOTE | 2022-04-08 18:10 | PM.OP ---
Operative Report Date of procedure: April 08, 2022 Pre-op diagnosis: Preop Diagnosis Right comminuted tibial plateau fracture Post-op diagnosis: same Procedure done: 1. ORIF Tibial plateau fracture 2. Open repair of lateral collateral ligament 3. Removal of External fixator from right leg Surgeon: Solis Milton Estimated blood loss (mL): 10 Tourniquet time (min): 80 Procedure: 1. ORIF Tibial plateau fracture 2. Open repair of lateral collateral ligament 3. Removal of External fixator from right leg Patient was brought to this operative suite after undergoing anesthesia was placed in supine position. Tourniquet was applied on the right leg. Prior to prepping and draping the external fixator was removed. This was done by using the wrench and removing the bars and then reverse drilling the pins out of the bone. Next attention was brought to prepping and draping the leg. Leg was up on a bump all areas impingement were well-padded. Post tension was brought to the medial side. Skin was made over the medial side of the knee. The pes tendon was identified and retracted medially fracture fragments were identified medially there was a piece anteriorly and a piece posteriorly and a piece directly medial. The fracture was reduced and held with a K wire. And then a medial Kika plate was placed lag screw was placed from medial to lateral through the plate. And then 2 screws were placed into the shaft distally and then 2 screws were placed into the posterior fragment the anterior fragment was reduced and screws placed and then another screw was placed from anterior to posterior to lock in the anterior fragment. Is brought to the lateral collateral ligament. The fibula head piece was avulsed. The fractured piece and the location where the lateral collateral ligament. It was identified. Attempts made at doing an ankle however the anchor just without the bone inside it through drill holes did 4 drill holes and 2 sutures passing through the drill holes around the avulsed piece and then clamping the reduced piece down and then tying down the lateral collateral ligament to the fibula. AP lateral fluoroscopy ensure that the fracture and hardware were in good position wounds were irrigated and closed in layered fashion with 0 Vicryl 2-0 Vicryl and nylon suture. Sterile dressings were applied patient was placed in a knee immobilizer and transferred to the PACU in stable condition.
[2022-04-08] MEDS: ondansetron 2 mg/ML SDV 2 mL 4 MG IVP (18:15)
[2022-04-08] MEDS: metoclopramide 5 mg/mL SDV 2 mL 10 MG (18:21)
[2022-04-08] MEDS: sodium chlor 0.9% + KCl 20 mEq 20 MEQ/1,000 ML BAG 60 MEQ IV (20:16)
[2022-04-08] MEDS: apixaban 5 mg Tablet 2.5 MG PO (20:17)
[2022-04-08] MEDS: HYDROcodone-acetaminophen 5-325 mg Tablet PO (20:57)
[2022-04-08] MEDS: ketorolac 30 mg/mL INJ IVP (20:57)
[2022-04-08] MEDS: ceFAZolin 1,000 MG in sodium chloride 0.9% (plus) 50 ML 100 MG IV (23:02)
[2022-04-08] MEDS: morphine 4 mg/mL SDV 1 mL 1 MG IVP (23:31)
[2022-04-09] VITALS: BP 131/77; PULSE 82; RESP 21; TEMP 36.7; O2SAT 96
[2022-04-09] MEDS: HYDROcodone-acetaminophen 5-325 mg Tablet PO ×3 (00:58→10:25)
[2022-04-09 03:00] VITALS: RESP 20
[2022-04-09] MEDS: morphine 4 mg/mL SDV 1 mL 1 MG IVP (03:00)
[2022-04-09 03:44] VITALS: BP 111/72; PULSE 77; RESP 15; TEMP 36.9; O2SAT 95
[2022-04-09] MEDS: methocarbamol 500 mg Tablet PO (05:06)
--- NOTE | 2022-04-09 06:04 | PC.PHAR ---
pt states he takes care of his own medications-pt states never picked up norco 5/325mg rx written 03/31/22 from Hilton Powers 04/07/22 from -notes are made in the pharmacy comments
[2022-04-09] MEDS: ceFAZolin 1,000 MG in sodium chloride 0.9% (plus) 50 ML 100 MG IV (06:54)
[2022-04-09 07:45] VITALS: BP 113/71; PULSE 78; RESP 16; TEMP 36.6; O2SAT 96
--- NOTE | 2022-04-09 08:15 | PM.DCS ---
Discharge Providers Date of Admission: 04/08/22 16:52 Date of Discharge: April 09, 2022 Attending Provider at Admission: Solis Milton DO Attending Provider at Discharge: Solis Milton DO Reason for Visit Reason for Visit: S82.201A Hospital Course Hospital Course pain controlled Physical Exam Narrative: moving toes good cap refill Discharge Data Studies Completed and Pending Pending at discharge Category Date Time Status XR knee RT 1-2V 41999 Routine Exams 04/08/22 17:13 Taken Vitals Last Vital Signs Temp 97.8 F 04/09/22 07:45 Pulse 78 04/09/22 07:45 Resp 16 04/09/22 07:45 BP 113/71 04/09/22 07:45 Pulse Ox 96 04/09/22 07:45 O2 Del Method 04/09/22 07:45 O2 Flow Rate 2 04/08/22 21:04 Discharge Plan Discharge Patient Disposition: Home Condition: Stable Prescriptions: New hydrocodone-acetaminophen 5-325 mg tablet 1 - 2 tab PO .Q4-6H Qty: 40 0RF Eliquis 2.5 mg tablet 2.5 mg PO Q12H Qty: 60 0RF Discontinued hydrocodone-acetaminophen 5-325 mg tablet 1 - 2 tab PO Q4H PRN (Reason: pain) 5 Days Qty: 30 0RF ibuprofen [Advil] 200 mg Tablet 600 mg PO Q6H PRN (Reason: Pain) acetaminophen [Tylenol Ex Str Rapid Release] 500 mg Tablet 1,500 mg PO Q6H PRN (Reason: Pain) No Action (DME) wheelchair with elevated leg rest See Rx Instructions .Route .MEDSUPPLY Qty: 1 0RF Rx Instructions: wheelchair with elevated leg rest to the right Discharge Orders: Discharge Order (Routine); Ordered 04/09/22 Ordered By: Solis Milton Discharge Diet: Advance as tolerated Discharge Activity: Limit activity as instructed Patient Instructions: Opioid Safety Activity Restrictions/Additional Instructions: You are being discharged from the hospital today during which time you have been under the care of Dr. Milton. You had a tibial plateau fracture. You were treated for this injury with ORIF tibial plateau. You may resume you normal diet (including any special diets as directed by your primary doctor) as well as your home medications. You should follow up with you primary doctor if you have any questions regarding medication you took prior to your stay in the hospital. You may take your pain medication as prescribed. After the first few days, take your pain medication as needed. Do not drive or drink alcohol while taking your pain medication. Your injury may increase your risk of developing a blood clot,or DVT, in your arm or leg. This could potentially dislodge and travel to your lungs and become a life threatening condition called apulmonary embolus,or PE. You have been prescribed Eliquis to be taken to prevent this. Frequent movement of the toes will also help prevent this from occurring. If you develop any new or worsening cough, chestpain, bloody sputum or shortness of breath, call 911 or go to the EmergencyRoom. Always keep your surgical incision/dressing clean and dry. If you experience increasing pain at your incision site, redness, swelling, increasing discharge, foul odors, or fevers (greater than 100.4), night sweats or chills you should call the office at the above number. If you feel this is an emergency you should be evaluated in the Emergency Department of a nearby hospital. Orthopedic Patient Instructions Summary: Weight Bearing: Nonweightbearing right lower extremity Activity: As tolerated. Diet: Regular. Splint Care: Keep splint clean and dry. Cover with a plastic bag for bathing. Wound Care: Keep dressing clean and dry. Anticoagulation: Eliquis Pain Medication: Take only as needed. Ice, rest and elevation will be of great benefit. Please plan to follow-up kiya Milton in 2 weeks. You will need to call the clinic [phone] to schedule this visit. Thank you far allowing me to participate in your care. Do not hesitate to call the office with any questions or concerns. Discharge Attestations Time Spent in Discharge Care*: less than 30 min Quality Metrics Clinical Quality Measures [ No reported AMI, CVA or VTE this stay] Coding Level of Care Code Acute Chg FW DC note
--- NOTE | 2022-04-09 08:44 | ANE.PACU2 ---
Inpatient post-anesthesia follow up: Airway intact: Yes Vital signs: Temperature 97.8 F Pulse Rate 78 Respiratory Rate 16 Blood Pressure 113/71 Pulse Oximetry 96 Oxygen Delivery Me thod Room Air Oxygen Flow Rate 2 Fraction of Inspir ed Oxygen Hydration adequate: Yes Nausea and vomiting: No Pain level: 3 Mental status: Baseline
[2022-04-09] MEDS: docusate sodium 100 mg Capsule PO (08:53)
[2022-04-09] MEDS: apixaban 5 mg Tablet 2.5 MG PO (08:53)
--- NOTE | 2022-04-09 10:31 | PC.NURSE ---
1030 ischarge instructions given to patient who voiced understanding
--- NOTE | 2022-04-09 10:53 | PC.CHAP ---
Pastoral Care Encounter/Spiritual Assessment Type of Contact [] Declined stereoptic projection topographer visit [] Patient/Family/Request visit [] Outpatient visit [] Follow-up visit [] Physician referral [] Code/Alert [x] Routine visit [] Staff referral [] Actively dying [] Patient sleeping [] Family support [] [] Out of room [] Palliative care [] [] Receiving care in room [] Pre-surgical visit [] Trauma [] Long length of stay [] ICU visit [] Other: Relational/Emotional Strength [] Patient feels connected with others/family/visitors/staff [] Distress [] Loneliness/isolation [] Abandonment Spirituality of Patient x] Person of Cathy [] Attends Restorationist of their Cathy [x] Believes in Prayer [] Reads Bible or Episcopalian materials [] There are Spiritual issues to be addressed [employer] Developer Interventions []x Prayer x] Active listening [x] Non-anxious presence [] Spiritual/emotional support [] Crisis/trauma care [] Spiritual counseling [] Bereavement support [] Provided bereavement packet [] Provided Bible/devotional materials [] Provided toy/stuffed animal, coloring book to patient or family member [] Provided Communion [] Anointing/[place] [] Salvation [x] Completed spiritual assessment [] Other: Impact on Illness or Injury [] Angry [] Fearful [] Anxious [] Often cries [] Exhaustion [] Unable to work [] Unable to attend denominational [] Unable to walk/stand [] Unable to read [] Unable to drive [] Unable to eat/drink [] Unable to sleep [] Unable to be with family [] Patient intubated [] Other: Summary patient doing good Time spent with patient 15 min
[2022-04-09 11:15] VITALS: BP 113/71; PULSE 78; RESP 16; TEMP 36.6; O2SAT 96
== END 2022-04-09 11:15 | disposition home or self-care (01) | DRG 494 ==
LOC: MEDSURG 04-09 08:15
PROVIDERS: Admitting Provider Orthopaedic Surgery; Visit Provider Orthopaedic Surgery
PROC: 0QSG04Z Reposition Right Tibia with Internal Fixation Device, Open Approach (ICD-10-PCS; principal; 2022-04-08 13:35)
DX: S82.141A Displaced bicondylar fracture of right tibia, initial encounter for closed fracture (principal); S82.401A Unspecified fracture of shaft of right fibula, initial encounter for closed fracture; V28.49XA Other motorcycle driver injured in noncollision transport accident in traffic accident, initial encounter
CPT/HCPCS: 73560; 76000; 97116; 97161; 97166; 97530; C1713; J0690; J1100; J1170; J1885; J2270; J2405; J2704; J2765; J3010; J3480; J7030

== ENCOUNTER → 2022-04-23 09:57 | Outpatient (BNVA) | payer OTHER, MEDICAID, SELFPAY | PROVIDERS: Visit Provider Physician Assistant | DX: S82.141A Displaced bicondylar fracture of right tibia, initial encounter for closed fracture (principal); V29.99XA Rider (driver) (passenger) of other motorcycle injured in unspecified traffic accident, initial encounter | CPT/HCPCS: 73560 ==

== ENCOUNTER 2022-04-23 11:43 | Outpatient (CLI) | payer OTHER, MEDICAID, SELFPAY | END 2022-04-23 11:44 | disposition home or self-care (01) | LOC: SPT 11:44 | PROVIDERS: Visit Provider Physician Assistant | DX: Z46.89 Encounter for fitting and adjustment of other specified devices (principal); S82.141D Displaced bicondylar fracture of right tibia, subsequent encounter for closed fracture with routine healing; V29.99XD Rider (driver) (passenger) of other motorcycle injured in unspecified traffic accident, subsequent encounter | CPT/HCPCS: 97760; L1832 ==

== ENCOUNTER → 2022-05-07 10:20 | Outpatient (BNVA) | payer OTHER, MEDICAID, SELFPAY | PROVIDERS: Visit Provider Physician Assistant | DX: S82.141D Displaced bicondylar fracture of right tibia, subsequent encounter for closed fracture with routine healing (principal); V29.99XD Rider (driver) (passenger) of other motorcycle injured in unspecified traffic accident, subsequent encounter | CPT/HCPCS: 73560 ==

== ENCOUNTER → 2022-06-09 15:02 | Outpatient (BNVA) | payer OTHER, MEDICAID, SELFPAY | PROVIDERS: Visit Provider Orthopaedic Surgery | DX: S82.141D Displaced bicondylar fracture of right tibia, subsequent encounter for closed fracture with routine healing (principal); X58.XXXD Exposure to other specified factors, subsequent encounter | CPT/HCPCS: 73560 ==